=== PATIENT | male | born 1980 | race Caucasian/White ===

== ENCOUNTER 2023-08-15 13:20 | Emergency (ER) | payer OTHER ==
[~2023-08-15] VITALS: Ht 177.8 cm; Wt 95.2 kg
[2023-08-15] MEDS ORDERED: IOHEXOL 300 MG/ML 100ML BOTTLE IJ ONE (14:22)
[2023-08-15 14:50] VITALS: PULSE 66; RESP 16; O2SAT 95
[2023-08-15 15:05] VITALS: BP 100/73; PULSE 66; RESP 16; TEMP 98.2; O2SAT 95
[2023-08-15] MEDS ORDERED: cefTRIAXone SOD 1,000 MG VL IM ONE (15:45)
[2023-08-15] MEDS ORDERED: AMOX500T3 PO (15:45)
[2023-08-15] MEDS ORDERED: TETANUS-DIPTH-ACEL PERTUSSIS 0.5ML SYR Tdap IM ONE (15:45)
[2023-08-15] MEDS ORDERED: METR-344 PO (15:45)
[2023-08-15] MEDS ORDERED: cefTRIAXone 1GM/50ML D5W 50 ML IV ONE (16:00)
== END 2023-08-15 16:46 | disposition home or self-care (01) ==
LOC: EDBD 13:20 → ER 13:20
DX: S21.112A Laceration without foreign body of left front wall of thorax without penetration into thoracic cavity, initial encounter (principal); S81.011A Laceration without foreign body, right knee, initial encounter; K52.89 Other specified noninfective gastroenteritis and colitis; Z48.00 Encounter for change or removal of nonsurgical wound dressing; W22.8XXA Striking against or struck by other objects, initial encounter; Y93.89 Activity, other specified; Y92.89 Other specified places as the place of occurrence of the external cause; Y99.8 Other external cause status
CPT/HCPCS: 71260; 73560; 73590; 74177; 90471; 90715; 96365; 99285; J0696; Q9967